=== PATIENT | male | born 1995 | race Caucasian/White ===

== ENCOUNTER → 2017-05-30 | Outpatient (CLI) | payer OTHER | END | disposition home or self-care (01) | LOC: LAB 16:04 | DX: B49 Unspecified mycosis (principal) | CPT/HCPCS: 87070; 87102; 87205 ==

== ENCOUNTER 2017-06-08 09:48 | Inpatient (IN) | payer OTHER ==
[2017-06-08 10:32] LABS: ADD MAN DIFF? NO
[2017-06-08 10:34] LABS: BASO # 0.1 x10^3/uL (0.0-0.2); BASO % 1 % (0-3); EOS # 0.3 x10^3/uL (0.0-0.7); EOS % 3 % (0-3); HEMATOCRIT 46.8 % (39.0-53.0); HEMOGLOBIN 15.6 g/dL (13.0-17.5); LYMPH # 1.8 x10^3/uL (1.0-4.8); LYMPH % 20 % (24-48); MEAN CORPUSCULAR HEMOGLOBIN 31 pg (25-35); MEAN CORPUSCULAR HGB CONC 33 g/dL (31-37); MEAN CORPUSCULAR VOLUME 91 fL (79-100); MONO # 1.1 x10^3/uL (0.0-1.1); MONO % 12 % (0-9); NEUT # 5.9 x10^3uL (1.8-7.7); NEUT % 65 % (31-73); PLATELET COUNT 209 x10^3/uL (140-400); RED BLOOD COUNT 5.12 x10^6/uL (4.30-5.70); RED CELL DISTRIBUTION WIDTH 12.9 % (11.5-14.5); WHITE BLOOD COUNT 9.1 x10^3/uL (4.0-11.0)
[2017-06-08] MEDS: IV NORMAL SALINE 1000ML BAG 1,000 ML IV ×4 (10:38→14:16)
[2017-06-08] MEDS: IPRATRPIUM/ALBUTEROL 0.5/2.5MG 3 ML NEBU. NEB ×8 (10:38→20:01)
[2017-06-08 10:44] LABS: ANION GAP 6 (6-14); BLOOD UREA NITROGEN 12 mg/dL (8-26); BUN/CREATININE RATIO 13 (6-20); CALCIUM 9.3 mg/dL (8.5-10.1); CARBON DIOXIDE 31 mmol/L (21-32); CHLORIDE 103 mmol/L (98-107); CREATININE 0.9 mg/dL (0.7-1.3); GFR 104.6; GLUCOSE 88 mg/dL (70-99); POTASSIUM 4.4 mmol/L (3.5-5.1); SODIUM 140 mmol/L (136-145)
[2017-06-08 10:50] LABS: ALBUMIN 3.9 g/dL (3.4-5.0); ALBUMIN/GLOBULIN RATIO 1.1 (1.0-1.7); ALK PHOS 70 U/L (46-116); ALT (SGPT) 72 U/L (16-63); AST (SGOT) 28 U/L (15-37); TOTAL BILIRUBIN 0.5 mg/dL (0.2-1.0); TOTAL PROTEIN 7.3 g/dL (6.4-8.2)
[2017-06-08] MEDS ORDERED: ONDANSETRON PF 4 MG/2 ML VIAL. IV ×4 (12:00→12:30)
[2017-06-08] MEDS ORDERED: PIP/TAZO PER PHARMACY MC ×2 (12:15)
[2017-06-08] MEDS ORDERED: MORPHINE SULFATE 4 MG/ML DISP.SYRIN. IV ×2 (12:30)
[2017-06-08] MEDS ORDERED: PROCHLORPERAZINE 10 MG/2 ML VIAL. IV ×2 (12:30)
[2017-06-08] MEDS ORDERED: HYDROmorphone 2 MG/ML VIAL IV ×2 (12:30)
[2017-06-08] MEDS ORDERED: LIDOCAINE 1% PF 2 ML VIAL. ID ×2 (12:30)
[2017-06-08] MEDS: IV RINGERS,LACTATED 1000ML 1,000 ML IV ×4 (12:42→12:45)
[2017-06-08] MEDS ORDERED: PROPOFOL 20 ML IV ×6 (12:54→13:08)
[2017-06-08] MEDS ORDERED: fentaNYL PF VIAL 100 MCG/2 ML VIAL ×2 (13:08)
[2017-06-08] MEDS: PIPERACILLIN/TAZOBACTAM 3.375 GM in IV NORMAL SALINE 50ML 50 ML IV ×3 (14:15→23:55)
[2017-06-08] MEDS: ACETAMINOPHEN 325 MG TABLET. PO ×4 (16:36→21:52)
[2017-06-08 18:17] LABS: IMMUNOGLOBULIN G 589 mg/dL (700-1600)
[2017-06-08] MEDS: BUDESONIDE 0.5 MG/2 ML NEBU. NEB ×2 (20:01)
[2017-06-08] MEDS: LACTOBACILLUS RHAMNOSUS GG 1 CAPSULE. PO ×4 (20:40→21:11)
[2017-06-09] MEDS: IV NORMAL SALINE 1000ML BAG 1,000 ML IV ×4 (02:23→03:29)
[2017-06-09 04:51] LABS: ADD MAN DIFF? NO
[2017-06-09 05:06] LABS: BASO # 0.1 x10^3/uL (0.0-0.2); BASO % 0 % (0-3); EOS # 0.3 x10^3/uL (0.0-0.7); EOS % 2 % (0-3); HEMOGLOBIN 14.2 g/dL (13.0-17.5); LYMPH # 2.6 x10^3/uL (1.0-4.8); LYMPH % 18 % (24-48); MEAN CORPUSCULAR HEMOGLOBIN 31 pg (25-35); MEAN CORPUSCULAR HGB CONC 34 g/dL (31-37); MEAN CORPUSCULAR VOLUME 92 fL (79-100); MONO # 1.2 x10^3/uL (0.0-1.1); MONO % 8 % (0-9); NEUT # 10.3 x10^3uL (1.8-7.7); NEUT % 71 % (31-73); PLATELET COUNT 184 x10^3/uL (140-400); RED BLOOD COUNT 4.55 x10^6/uL (4.30-5.70); RED CELL DISTRIBUTION WIDTH 13.1 % (11.5-14.5); WHITE BLOOD COUNT 14.4 x10^3/uL (4.0-11.0)
[2017-06-09 05:25] LABS: ALBUMIN 3.1 g/dL (3.4-5.0); ALBUMIN/GLOBULIN RATIO 1.1 (1.0-1.7); ALK PHOS 60 U/L (46-116); ALT (SGPT) 57 U/L (16-63); ANION GAP 5 (6-14); AST (SGOT) 23 U/L (15-37); BLOOD UREA NITROGEN 13 mg/dL (8-26); BUN/CREATININE RATIO 13 (6-20); CALCIUM 8.7 mg/dL (8.5-10.1); CARBON DIOXIDE 30 mmol/L (21-32); CHLORIDE 106 mmol/L (98-107); GFR 92.6; GLUCOSE 107 mg/dL (70-99); POTASSIUM 3.7 mmol/L (3.5-5.1); SODIUM 141 mmol/L (136-145); TOTAL BILIRUBIN 0.5 mg/dL (0.2-1.0)
[2017-06-09] MEDS: PIPERACILLIN/TAZOBACTAM 3.375 GM in IV NORMAL SALINE 50ML 50 ML IV ×3 (06:26→17:17)
[2017-06-09] MEDS: BUDESONIDE 0.5 MG/2 ML NEBU. NEB ×4 (07:29→19:49)
[2017-06-09] MEDS: IPRATRPIUM/ALBUTEROL 0.5/2.5MG 3 ML NEBU. NEB ×6 (07:29→15:46)
[2017-06-09] MEDS ORDERED: PNEUMOCOCCAL VAX SCREEN BY RX. MC ×2 (09:00)
[2017-06-09] MEDS: LACTOBACILLUS RHAMNOSUS GG 1 CAPSULE. PO ×4 (09:41→22:09)
[2017-06-09] MEDS: ENOXAPARIN 40 MG/0.4 ML SYRINGE. SQ ×2 (12:20)
[2017-06-09] MEDS: ALBUTEROL SULFATE 2.5 MG/3 ML NEBU. NEB ×2 (19:50)
[2017-06-09] MEDS: ACETAMINOPHEN 325 MG TABLET. PO ×2 (22:08)
[2017-06-09] MEDS: OSELTAMIVIR PO ×2 (22:08)
[2017-06-10] MEDS: PIPERACILLIN/TAZOBACTAM 3.375 GM in IV NORMAL SALINE 50ML 50 ML IV ×4 (05:33→10:55)
[2017-06-10] MEDS: BUDESONIDE 0.5 MG/2 ML NEBU. NEB ×2 (07:42)
[2017-06-10] MEDS: LACTOBACILLUS RHAMNOSUS GG 1 CAPSULE. PO ×2 (08:37)
[2017-06-10] MEDS: OSELTAMIVIR PO ×2 (08:37)
[2017-06-10] MEDS: PNEUMOC CONJ VACC 23-VALENT 0.5 ML VIAL. VAX IM ×2 (08:37)
[2017-06-10] MEDS: ACETAMINOPHEN 325 MG TABLET. PO ×2 (08:44)
[2017-06-10] MEDS ORDERED: OSELTAMIVIR 75 MG CAPSULE PO ×2 (09:00)
[2017-06-10] MEDS ORDERED: traMADol 50 MG TABLET PO ×2 (10:45)
[2017-06-10] MEDS: IBUPROFEN 600 MG TABLET. PO ×2 (10:54)
[2017-06-11 17:19] LABS: HIV ANTIBODY Non Reactive (Non Reactive)
[2017-06-13 10:22] LABS: L PNEUMOPHILA (BAL) Not Detected (.); PAN LEGIONELLA (BAL) Not Detected (.)
[2017-06-14 01:12] LABS: IMMUNOGLUBULIN E 401 IU/mL (0-100)
== END 2017-06-10 12:00 | disposition home or self-care (01) | DRG 167 ==
LOC: ER 09:48 → 5 SOUTH 12:51
PROC: 0B9 Respiratory System, Drainage (ICD-10-PCS; principal; 2017-06-08 12:30)
DX: J11.00 Influenza due to unidentified influenza virus with unspecified type of pneumonia (principal); J45.901 Unspecified asthma with (acute) exacerbation; D89.9 Disorder involving the immune mechanism, unspecified; F17.210 Nicotine dependence, cigarettes, uncomplicated; E04.1 Nontoxic single thyroid nodule; B95.61 Methicillin susceptible Staphylococcus aureus infection as the cause of diseases classified elsewhere
CPT/HCPCS: 31622; 36415; 71046; 71250; 76536; 80053; 82784; 85025; 86703; 86713; 87040; 87070; 87102; 87116; 87186; 87205; 88112; 88313; 90732; 94640; 94760; 96360; 96361; 99285; 99285-25; J1650; J2020; J2543; J2704; J3010; J7030; J7120; J7613; J7620; J7626

== ENCOUNTER → 2017-07-11 | Outpatient (CLI) | payer OTHER ==
[2017-07-13 06:17] LABS: IGG1 343 mg/dL (248-810); IGG2 292 mg/dL (130-555); IGG3 50 mg/dL (15-102); IGG4 42 mg/dL (2-96); TOTAL IGG 682 mg/dL (700-1600)
== END | disposition home or self-care (01) ==
LOC: LAB 15:55
DX: J16.8 Pneumonia due to other specified infectious organisms (principal)
CPT/HCPCS: 36415; 82787

== ENCOUNTER → 2019-05-30 | Outpatient (CLI) | payer OTHER ==
[2017-06-10 11:00] VITALS: BP 120/69
[~2019-05-30] MED LIST: BARIUM SULFATE 340 GM SUSPENSION. PO ONE; BARIUM SULFATE 60% 355 ML SUSP PO ONE; BREO ELLIPTA 11 EACH IH; CETI10TA24 PO; FLUT9.9S NS; LINE600T12 PO; MONT10TA49 PO; OMEP40CA45 PO; PROM118S5 PO; SIMETHICONE/SOD BICARB/CITRIC ACID PACKET. PO ONE; VENTOLIN HFA18 GM INH
--- NOTE | 2019-05-30 17:53 | RAD ---
Upper GI series INDICATION: 24-year-old man with dysphasia following prior LINX device implantation for gastroesophageal reflux control. COMPARISON: CT chest without IV contrast of June 08, 2017. TECHNIQUE: Upright bilateral posterior oblique imaging of the thoracic esophagus was performed utilizing crystals and thick barium. 6 images were acquired for procedural documentation using a total of 0.5 minutes of fluoroscopy time. He was shielded with a lead skirt during the procedure. FINDINGS: Prior to any contrast ingestion, a radiopaque foreign body at the gastroesophageal junction compatible with a constricting ring is evident. The initial images post ingestion of effervescent crystals and barium contrast material shows a large filling defect in the posterior thoracic esophagus which is mildly dilated and tapers to a narrow point distally. A thin string of contrast material passes through the ring to opacify the gastric fundus but the majority of the contrast material remains within the dilated thoracic esophagus. This is confirmed in multiple projections and the dilation of the thoracic esophagus by effervescent crystals does not result in additional widening of the gastroesophageal junction. Instead, retrograde propulsion of esophageal contents is demonstrated. Patient reported some discomfort with the procedure which was therefore terminated. IMPRESSION: Achalasia status post gastroesophageal banding procedure. Findings discussed with patient prior to his discharge from the imaging suite. I later by telephone suggested he consider switching to a liquid diet pending definitive therapy of this functional obstruction at the gastroesophageal junction. Electronically signed by: Bill Toledo MD (05/30/2019 5:50 PM) [id number]
== END | disposition home or self-care (01) ==
LOC: RAD 13:09
PROVIDERS: ATTEND Surgery
DX: K22.0 Achalasia of cardia (principal); Z98.84 Bariatric surgery status
CPT/HCPCS: 74240